=== PATIENT | female | born 1940 | race Caucasian/White ===

== ENCOUNTER 2016-10-26 09:57 | Outpatient (CLI) | payer MEDICARE, BC ==
[2016-10-26 10:54] LABS: ALT (SGPT) 24 U/L (0-55); AST (SGOT) 19 U/L (5-34); Alkaline Phosphatase 43 U/L (40-150); Anion Gap 16 mmol/L (10-20); BUN (Urea Nitrogen) 13 mg/dL (9.8-20.1); Bilirubin, Total 0.8 mg/dL (0.2-1.2); Calc. Creatinine Clearance 0 mL/min (70-130); Calcium 9.7 mg/dL (7.8-10.44); Carbon Dioxide 29 mmol/L (23-31); Chloride 91 mmol/L (98-107); Estimated GFR-MDRD 71; Globulin 2.9 g/dL (2.4-3.5); LDL Cholesterol, Calculated 110 mg/dL; Protein, Total 7.3 g/dL (5.8-8.1)
[2016-10-26 11:48] LABS: Hemoglobin A1c 5.9 % (4.0-6.0)
[2016-10-26 12:29] LABS: Hematocrit 44.1 % (36.0-47.0); Mean Platelet Volume 5.4 fL (7.4-10.4); Neutrophil 56 % (42-75); Red Blood Cell (RBC) Count 4.59 mill/uL (4.20-5.40); White Blood Cell (WBC) Count 3.3 thou/uL (4.8-10.8)
== END 2016-10-26 09:58 | disposition home or self-care (01) ==
LOC: HPCALD 09:57
PROVIDERS: ATTEND Family Medicine
DX: E78.5 Hyperlipidemia, unspecified (principal); E11.9 Type 2 diabetes mellitus without complications; I10 Essential (primary) hypertension; E55.9 Vitamin D deficiency, unspecified
CPT/HCPCS: 36415; 80053; 80061; 82306; 83036; 85025

== ENCOUNTER 2016-11-23 09:31 | Emergency (ER) | payer MEDICARE, BC ==
[2016-11-23] MEDS ORDERED: Fentanyl 100 MCG/2 ML VIAL ONE (11:21)
--- NOTE | 2016-11-23 20:53 | RAD ---
LEFT WRIST THREE VIEWS 11/23/16 No acute fracture was demonstrated. Old trauma to the base of the first metacarpal is noted. There a re severe arthritic changes between the trapezium and first metacarpal as well as deformity of the m etacarpal base, probably due to prior trauma. The trapezium seems somewhat sclerotic and deformed. T he other carpals appear intact. There is suggestion of calcification of the triangular fibrocartilag e which can sometimes be seen in deposition diseases. There is some soft tissue swelling around the wrist, particularly dorsally, but I cannot define any definite fracture at this time. Since osteopen ic patient's such as this, sometimes can have subtle injuries that do not show up initially, if she does not improve as expected, repeat films, possibly with scaphoid views, in 7 to 10 days could be i ndicated. IMPRESSION: Longstanding arthritic findings as noted without any clear acute fracture. POS: HOME
== END 2016-11-23 12:05 | disposition home or self-care (01) ==
LOC: BURERS 09:31
DX: S62.102A Fracture of unspecified carpal bone, left wrist, initial encounter for closed fracture (principal); E11.9 Type 2 diabetes mellitus without complications; E78.5 Hyperlipidemia, unspecified; I10 Essential (primary) hypertension; W18.30XA Fall on same level, unspecified, initial encounter
CPT/HCPCS: 29125; 96374; J3010

== ENCOUNTER 2016-12-08 17:17 | Emergency (ER) | payer MEDICARE, BC ==
[2016-12-08 18:10] LABS: #Lymphocytes 0.7 thou/uL (1.20-3.40); #Monocytes 0.6 thou/uL (0.11-0.59); #Neutrophils 3.6 thou/uL (1.40-6.50); %Basophils 0.9 % (0.0-1.0); %Eosinophils 0.7 % (0.0-10.0); %Monocytes 11.4 % (0.0-10.0); Hematocrit 37.6 % (36.0-47.0); Red Blood Cell (RBC) Count 4.03 mill/uL (4.20-5.40); White Blood Cell (WBC) Count 4.9 thou/uL (4.8-10.8)
[2016-12-08 18:11] LABS: Bilirubin Negative (Negative); Blood, Urine Small (Negative); Glucose, Urine (Dipstick) Negative (Negative); Ketone, Urine Negative (Negative); Nitrite Negative (Negative); Urobilinogen 0.2 mg/dL (0.2-1.0)
[2016-12-08 18:12] LABS: Lactic Acid - Sepsis 1.4 mmol/L (0.5-2.2)
[2016-12-08 18:12] LABS: Protein, Urine (Dipstick) Negative (Neg-Trace)
[2016-12-08 18:17] LABS: ALT (SGPT) 33 U/L (0-55); AST (SGOT) 22 U/L (5-34); Alkaline Phosphatase 48 U/L (40-150); Anion Gap 15 mmol/L (10-20); BUN (Urea Nitrogen) 12 mg/dL (9.8-20.1); Bilirubin, Total 0.7 mg/dL (0.2-1.2); Calc. Creatinine Clearance 0 mL/min (70-130); Calcium 9.5 mg/dL (7.8-10.44); Carbon Dioxide 26 mmol/L (23-31); Chloride 87 mmol/L (98-107); Estimated GFR-MDRD 73; Globulin 3.1 g/dL (2.4-3.5); Protein, Total 7.6 g/dL (5.8-8.1)
[2016-12-08 18:18] LABS: Troponin I 0.013 ng/mL (< 0.028)
[2016-12-08 18:19] LABS: Bacteria/HPF None Seen HPF (None Seen); Hyaline Casts/LPF NONE SEEN LPF (0-3 Hyaline); Oval Fat Bodies/HPF None Seen HPF (None Seen); RBC/HPF 0-3 HPF (0-3); Renal Epithelial None Seen HPF (0-3); Sperm/HPF None Seen HPF (None Seen); Squamous Epithelial None Seen HPF (0-3); Transitional Epithelial NONE SEEN HPF (0-3); Trichomonas/HPF None Seen HPF (None Seen); WBC/HPF None Seen HPF (0-3); Yeast-All Forms None Seen HPF (None Seen)
[2016-12-08] MEDS ORDERED: Enoxaparin Sodium 100 MG/ML SYRINGE ONE (18:34)
[2016-12-08 18:38] LABS: PTT 28.2 SEC (22.9-36.1)
[2016-12-08 18:39] LABS: Prothrombin Time 14.3 SEC (12.0-14.7)
[2016-12-08] MEDS ORDERED: Potassium Chloride 20 MEQ TAB ONE (18:56)
--- NOTE | 2016-12-08 22:44 | RAD ---
PORTABLE CHEST 12/08/16 An AP portable film at 1812 is compared with a 07/04/15 study done at [facility]. Cardiomegaly is present without clear congestive change. There are no effusions. The right lung is c lear. There is a little increased density in the left upper lobe. I cannot exclude an infiltrate her e. The trachea is midline. IMPRESSION: 1. Cardiomegaly. 2. Probable left upper lobe infiltrate. POS: HOME
--- NOTE | 2016-12-08 22:50 | CT ---
CT ANGIO OF THE CHEST 12/08/16 CT angio of the chest was done after a bolus of IV contrast. Axial slices were acquired, then south l and sagittal reconstructions were done afterwards. There is excellent opacification of the pulmonary arteries with no filling defects to suggest emboli . There is no signs of aortic dissection or aneurysm. The heart is enlarged but contains no pericard ial fluid. There is probably some calcifications in the left coronary circulation. No mediastinal ma ss or adenopathy of significance was seen. The major finding on the study is a patchy left upper lobe opacity with air bronchograms presumed to be a consolidation of pneumonia. The lungs were otherwise clear. There are no effusions. Scarring i s present in the lung apices in particular. Scans into the upper abdomen show the liver in part. It is somewhat low in density suggesting diffus e fatty infiltration. A small hiatal hernia is present. IMPRESSION: Left upper lobe parenchymal opacity with air bronchograms, most consistent with pneumonia. REPORT IN AGREEMENT WITH PRELIMINARY READING BY VRTRESSA. POS: HOME
--- NOTE | 2016-12-08 22:52 | CT ---
CT OF THE BRAIN WITHOUT CONTRAST 12/08/[address] was done. The ventricles are normal in size for age and atrophy. There is no ventri cular shift. No intracranial bleeding, mass or sign of acute stroke was found. Some minimal patchy h ypolucency in the deep white matter suggests chronic ischemic change. The calvarium appears intact. The sphenoid sinus and mastoid air cells are clear. IMPRESSION: No acute intracranial finding. POS: HOME
== END 2016-12-08 20:07 | disposition short-term general hospital (02) ==
LOC: BURERS 17:17
DX: I48.91 Unspecified atrial fibrillation (principal); E87.1 Hypo-osmolality and hyponatremia; R91.8 Other nonspecific abnormal finding of lung field; E11.9 Type 2 diabetes mellitus without complications; E78.5 Hyperlipidemia, unspecified; I10 Essential (primary) hypertension; Z79.899 Other long term (current) drug therapy
CPT/HCPCS: 36416; 51701; 70450; 71010; 71275; 80053; 81003; 81015; 82553; 83605; 83880; 84443; 84484; 85025; 85379; 85610; 85730; 93005; 94760; 96360; 96372; A4353; J1650

== ENCOUNTER 2016-12-28 09:09 | Outpatient (CLI) | payer MEDICARE, BC ==
[2016-12-28 11:13] LABS: #Basophils 0.1 thou/uL (0.0-0.2); #Eosinphils 0.2 thou/uL (0.0-0.7); #Lymphocytes 0.4 thou/uL (1.20-3.40); #Neutrophils 9.4 thou/uL (1.40-6.50); %Basophils 0.7 % (0.0-1.0); %Eosinophils 1.6 % (0.0-10.0); %Lymphocytes 3.4 % (21.0-51.0); %Monocytes 8.7 % (0.0-10.0); %Neutrophils 85.7 % (42.0-75.0); Hemoglobin 13.4 g/dL (12.0-16.0); Mean Corpuscular HGB CONC 35.4 g/dL (32.0-36.0); Mean Corpuscular Hemoglobin 33.2 pg (27.0-31.0); Mean Corpuscular Volume 93.7 fl (81.0-99.0); Mean Platelet Volume 6.2 fL (7.4-10.4); Platelet Count 220 thou/uL (130-400); Red Blood Cell (RBC) Count 4.03 mill/uL (4.20-5.40); White Blood Cell (WBC) Count 10.9 thou/uL (4.8-10.8)
[2016-12-28 11:15] LABS: Anion Gap 17 mmol/L (10-20); BUN (Urea Nitrogen) 13 mg/dL (9.8-20.1); Calc. Creatinine Clearance 0 mL/min (70-130); Calcium 10.6 mg/dL (7.8-10.44); Carbon Dioxide 27 mmol/L (23-31); Chloride 89 mmol/L (98-107); Estimated GFR-MDRD 78; Glucose 105 mg/dL (83-110); Potassium 3.2 mmol/L (3.5-5.1); Sodium 130 mmol/L (136-145)
== END 2016-12-28 09:10 | disposition home or self-care (01) ==
LOC: BURLAB 09:09
PROVIDERS: ATTEND Internal Medicine Cardiovascular Disease
DX: I48.1 Persistent atrial fibrillation (principal); I10 Essential (primary) hypertension
CPT/HCPCS: 36415; 80048; 84443; 85025

== ENCOUNTER 2016-12-31 14:16 | Outpatient (CLI) | payer MEDICARE, BC ==
--- NOTE | 2016-12-31 21:29 | RAD ---
RIGHT HAND THREE VIEWS: Date: 12-31-16 FINDINGS: A slightly displaced fracture at the base of the proximal phalanx of the fifth digit is present. The re is significant posterior angulation of the distal fragment. 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 No a cute carpal abnormality was appreciated, though all carpals were not seen optimally. IMPRESSION: Mildly displaced angulated fracture at the base of the proximal phalanx of the little finger. POS: HOME
== END 2016-12-31 14:17 | disposition home or self-care (01) ==
LOC: BURRAD 14:16
PROVIDERS: ATTEND Family Medicine
DX: M79.641 Pain in right hand (principal); S62.616A Displaced fracture of proximal phalanx of right little finger, initial encounter for closed fracture

== ENCOUNTER 2017-01-16 08:34 | Outpatient (CLI) | payer MEDICARE, BC ==
[2017-01-16 10:52] LABS: Eosinophils 5 % (0-10); Hemoglobin 12.2 g/dL (12.0-16.0); Lymphocytes 12 % (21-51); MDiff Complete? YES; Mean Corpuscular HGB CONC 33.3 g/dL (32.0-36.0); Mean Corpuscular Hemoglobin 31.8 pg (27.0-31.0); Mean Corpuscular Volume 95.4 fl (81.0-99.0); Mean Platelet Volume 5.8 fL (7.4-10.4); Monocytes 8 % (0-10); Neutrophil 75 % (42-75); Platelet Count 290 thou/uL (130-400); Red Blood Cell (RBC) Count 3.82 mill/uL (4.20-5.40); White Blood Cell (WBC) Count 2.9 thou/uL (4.8-10.8)
== END 2017-01-16 08:35 | disposition home or self-care (01) ==
LOC: BURLAB 08:34
PROVIDERS: ATTEND Internal Medicine Cardiovascular Disease
DX: I48.1 Persistent atrial fibrillation (principal); E78.5 Hyperlipidemia, unspecified
CPT/HCPCS: 36415; 85025

== ENCOUNTER 2017-03-01 12:40 | Emergency (ER) | payer MEDICARE, BC ==
[2017-03-01] MEDS ORDERED: Oxymetazoline HCl 0.05% ( 15 ML ) ONE (13:32)
== END 2017-03-01 14:29 | disposition home or self-care (01) ==
LOC: BURERS 12:40
DX: R04.0 Epistaxis (principal); E11.9 Type 2 diabetes mellitus without complications; E78.5 Hyperlipidemia, unspecified; I10 Essential (primary) hypertension; Z79.84 Long term (current) use of oral hypoglycemic drugs; Z79.899 Other long term (current) drug therapy
CPT/HCPCS: 99283

== ENCOUNTER 2017-03-06 10:24 | Outpatient (CLI) | payer MEDICARE, BC ==
[2017-03-06 12:06] LABS: Hemoglobin 13.2 g/dL (12.0-16.0); Mean Corpuscular HGB CONC 34.5 g/dL (32.0-36.0); Mean Corpuscular Hemoglobin 32.2 pg (27.0-31.0); Mean Corpuscular Volume 93.3 fl (81.0-99.0); Mean Platelet Volume 5.9 fL (7.4-10.4); Platelet Count 205 thou/uL (130-400); RBC Distribution Width 12.4 % (11.5-14.5); White Blood Cell (WBC) Count 3.8 thou/uL (4.8-10.8)
[2017-03-06 14:59] LABS: ALT (SGPT) 51 U/L (8-55); AST (SGOT) 31 U/L (5-34); Albumin 4.2 g/dL (3.4-4.8); Alkaline Phosphatase 45 U/L (40-150); Anion Gap 16 mmol/L (10-20); BUN (Urea Nitrogen) 13 mg/dL (9.8-20.1); Bilirubin, Total 1.1 mg/dL (0.2-1.2); Calc. Creatinine Clearance 0 mL/min (70-130); Calcium 9.4 mg/dL (7.8-10.44); Carbon Dioxide 26 mmol/L (23-31); Chloride 90 mmol/L (98-107); Estimated GFR-MDRD 75; Globulin 2.4 g/dL (2.4-3.5); Glucose 107 mg/dL (83-110); Potassium 3.3 mmol/L (3.5-5.1); Protein, Total 6.6 g/dL (6.0-8.3); Sodium 129 mmol/L (136-145)
[2017-03-06 15:15] LABS: Hemoglobin A1c 5.9 % (4.0-6.0)
[2017-03-06 15:40] LABS: Eosinophils 1 % (0-10); Lymphocytes 19 % (21-51); MDiff Complete? YES; Monocytes 19 % (0-10); Neutrophil 61 % (42-75); PLT Morphology Comment Appears Adequate
== END 2017-03-06 10:25 | disposition home or self-care (01) ==
LOC: HPCALD 10:24
PROVIDERS: ATTEND Family Medicine
DX: E11.9 Type 2 diabetes mellitus without complications (principal); I10 Essential (primary) hypertension
CPT/HCPCS: 36415; 80053; 83036; 85025

== ENCOUNTER 2017-04-17 11:23 | Outpatient (CLI) | payer MEDICARE, BC | END 2017-04-17 11:24 | disposition home or self-care (01) | LOC: HPCALD 11:23 | PROVIDERS: ATTEND Family Medicine | DX: N39.0 Urinary tract infection, site not specified (principal) | CPT/HCPCS: 87077; 87086; 87186 ==

== ENCOUNTER 2017-05-01 21:28 | Inpatient (IN) | payer MEDICARE, BC ==
[2017-05-01 22:14] LABS: Hemoglobin 14.4 g/dL (12.0-16.0); Mean Corpuscular HGB CONC 38.3 g/dL (32.0-36.0); Mean Corpuscular Hemoglobin 34.1 pg (27.0-31.0); Mean Platelet Volume 5.4 fL (7.4-10.4); Platelet Count 251 thou/uL (130-400); RBC Distribution Width 10.7 % (11.5-14.5); Red Blood Cell (RBC) Count 4.24 mill/uL (4.20-5.40); White Blood Cell (WBC) Count 5.9 thou/uL (4.8-10.8)
[2017-05-01 22:19] LABS: ALT (SGPT) 41 U/L (8-55); AST (SGOT) 27 U/L (5-34); Albumin 4.5 g/dL (3.4-4.8); Alkaline Phosphatase 49 U/L (40-150); Anion Gap 16 mmol/L (10-20); BUN (Urea Nitrogen) 17 mg/dL (9.8-20.1); Bilirubin, Total 1.2 mg/dL (0.2-1.2); Calc. Creatinine Clearance 0 mL/min (70-130); Calcium 9.5 mg/dL (7.8-10.44); Carbon Dioxide 26 mmol/L (23-31); Chloride 79 mmol/L (98-107); Estimated GFR-MDRD 71; Glucose 152 mg/dL (83-110); Potassium 3.3 mmol/L (3.5-5.1); Protein, Total 7.5 g/dL (6.0-8.3)
[2017-05-01 22:20] LABS: CKMB 3.1 ng/mL (0-6.6); Sodium 118 mmol/L (136-145); Troponin I Less than 0.010 ng/mL (< 0.028)
[2017-05-01 22:22] LABS: Bilirubin Negative (Negative); Blood, Urine Negative (Negative); Clarity Clear (Clear); Glucose, Urine (Dipstick) Negative (Negative); Leukocyte Moderate (Negative); Nitrite Negative (Negative); Protein, Urine (Dipstick) Trace mg/dL (Neg-Trace); Urobilinogen 0.2 mg/dL (0.2-1.0); pH, Urine 6.5 (5.0-9.0)
[2017-05-01 22:29] LABS: #Basophils 0.1 thou/uL (0.0-0.2); #Lymphocytes 0.7 thou/uL (1.20-3.40); #Monocytes 0.9 thou/uL (0.11-0.59); #Neutrophils 4.4 thou/uL (1.40-6.50); %Eosinophils 0.3 % (0.0-10.0); %Lymphocytes 10.1 % (21.0-51.0); %Monocytes 14.5 % (0.0-10.0); %Neutrophils 74.2 % (42.0-75.0); MDiff Complete? YES; Macrocytosis SLIGHT = 6-15 cells (100X) (0-5/hpf); PLT Morphology Comment Appears Adequate
[2017-05-01 22:32] LABS: Bacteria/HPF Rare-Few HPF (None Seen); Squamous Epithelial 0-3 HPF (0-3)
[2017-05-01] MEDS ORDERED: Potassium Chloride 20 MEQ TAB ONE ×2 (22:48→22:51)
[2017-05-01 23:50] VITALS: BMI 22.1
[2017-05-02] MEDS ORDERED: Sodium Chloride 0.9% 1,000 ML IV SCH ×2 (00:15→07:30)
[2017-05-02 06:21] LABS: Anion Gap 12 mmol/L (10-20); BUN (Urea Nitrogen) 10 mg/dL (9.8-20.1); Calc. Creatinine Clearance 65 mL/min (70-130); Calcium 8.8 mg/dL (7.8-10.44); Carbon Dioxide 25 mmol/L (23-31); Chloride 89 mmol/L (98-107); Estimated GFR-MDRD 87; Glucose 113 mg/dL (83-110); Potassium 3.4 mmol/L (3.5-5.1); Sodium 123 mmol/L (136-145)
[2017-05-02] MEDS ORDERED: Potassium Chloride 20 MEQ TAB PO SCH (08:00)
[2017-05-02] MEDS: Pioglitazone HCl 15 MG TAB PO SCH (09:45)
[2017-05-02] MEDS: Losartan Potassium 50 MG TAB PO SCH (09:59)
[2017-05-02] MEDS: Calcium Carbonate 500 MG TAB PO SCH (10:00)
[2017-05-02] MEDS: Multivit, Therapeutic 1 TAB PO SCH ×2 (10:02→10:03)
[2017-05-02] MEDS: Potassium Chloride 20 MEQ TAB PO SCH ×2 (10:02→20:53)
[2017-05-02] MEDS: Dronedarone HCl 400 MG TAB PO SCH ×2 (10:02→18:24)
[2017-05-02] MEDS: Loratadine 10 MG TAB PO SCH (10:03)
[2017-05-02] MEDS: Olopatadine HCl 100 DROP/5 ML BOT EA EYE SCH ×2 (10:04→20:54)
[2017-05-02] MEDS: Apixaban 5 MG TAB PO SCH ×2 (10:04→20:54)
[2017-05-02] MEDS: Anastrozole [Arimidex] 1 MG PO SCH (14:55)
[2017-05-02] MEDS: Temazepam 15 MG CAP PO SCH (20:52)
[2017-05-02] MEDS: Ezetimibe 10 MG TAB PO SCH (20:54)
[2017-05-03 06:56] LABS: Hemoglobin 13.6 g/dL (12.0-16.0); Platelet Count 210 thou/uL (130-400)
[2017-05-03 07:27] LABS: Anion Gap 15 mmol/L (10-20); BUN (Urea Nitrogen) 14 mg/dL (9.8-20.1); Calc. Creatinine Clearance 59 mL/min (70-130); Calcium 9.3 mg/dL (7.8-10.44); Carbon Dioxide 24 mmol/L (23-31); Chloride 94 mmol/L (98-107); Estimated GFR-MDRD 78; Glucose 103 mg/dL (83-110); Potassium 4.1 mmol/L (3.5-5.1); Sodium 129 mmol/L (136-145)
[2017-05-03] MEDS: Olopatadine HCl 100 DROP/5 ML BOT EA EYE SCH ×2 (08:38→21:02)
[2017-05-03] MEDS: Anastrozole [Arimidex] 1 MG PO SCH (08:39)
[2017-05-03] MEDS: Calcium Carbonate 500 MG TAB PO SCH (08:40)
[2017-05-03] MEDS: Apixaban 5 MG TAB PO SCH ×2 (08:41→21:01)
[2017-05-03] MEDS: Potassium Chloride 20 MEQ TAB PO SCH (08:43)
[2017-05-03] MEDS: Pioglitazone HCl 15 MG TAB PO SCH (08:43)
[2017-05-03] MEDS: Dronedarone HCl 400 MG TAB PO SCH ×2 (08:43→16:39)
[2017-05-03] MEDS: Loratadine 10 MG TAB PO SCH (08:43)
[2017-05-03] MEDS: Losartan Potassium 50 MG TAB PO SCH (08:43)
[2017-05-03] MEDS: Ezetimibe 10 MG TAB PO SCH (21:01)
[2017-05-03] MEDS: Temazepam 15 MG CAP PO SCH (23:04)
[2017-05-04 06:21] VITALS: BP 166/74; TEMP 98.6
[2017-05-04 07:00] LABS: Anion Gap 15 mmol/L (10-20); BUN (Urea Nitrogen) 16 mg/dL (9.8-20.1); Calc. Creatinine Clearance 59 mL/min (70-130); Calcium 9.4 mg/dL (7.8-10.44); Carbon Dioxide 25 mmol/L (23-31); Chloride 93 mmol/L (98-107); Estimated GFR-MDRD 78; Glucose 97 mg/dL (83-110); Potassium 4.3 mmol/L (3.5-5.1); Sodium 129 mmol/L (136-145)
[2017-05-04] MEDS ORDERED: Potassium Chloride 20 MEQ TAB PO SCH (08:00)
[2017-05-04] MEDS: Pioglitazone HCl 15 MG TAB PO SCH (08:17)
[2017-05-04] MEDS: Apixaban 5 MG TAB PO SCH (08:18)
[2017-05-04] MEDS: Losartan Potassium 50 MG TAB PO SCH (08:18)
[2017-05-04] MEDS: Multivit, Therapeutic 1 TAB PO SCH (08:18)
[2017-05-04] MEDS: Calcium Carbonate 500 MG TAB PO SCH (08:18)
[2017-05-04] MEDS: Dronedarone HCl 400 MG TAB PO SCH (08:20)
[2017-05-04] MEDS: Loratadine 10 MG TAB PO SCH (08:22)
[2017-05-04] MEDS: Olopatadine HCl 100 DROP/5 ML BOT EA EYE SCH (08:23)
[2017-05-04] MEDS: Anastrozole [Arimidex] 1 MG PO SCH (08:23)
--- NOTE | 2017-05-04 20:22 | DIS ---
written discharge summary done due to dictation system cutting off during phone call [facility]
== END 2017-05-04 11:22 | disposition home or self-care (01) | DRG 641 ==
LOC: BURERS 21:28 → BURMED 22:40
PROVIDERS: ADMIT Family Medicine; ATTEND Family Medicine
DX: E87.1 Hypo-osmolality and hyponatremia (principal); I48.91 Unspecified atrial fibrillation; E11.9 Type 2 diabetes mellitus without complications; Z85.3 Personal history of malignant neoplasm of breast; E78.5 Hyperlipidemia, unspecified; I10 Essential (primary) hypertension; E55.9 Vitamin D deficiency, unspecified; E87.6 Hypokalemia; J30.9 Allergic rhinitis, unspecified
CPT/HCPCS: 36415; 36416; 80048; 80053; 81003; 81015; 82553; 84484; 85014; 85018; 85025; 85049; 93005; A4216; G8978-GP-CJ; G8979-GP-CI

== ENCOUNTER 2017-05-20 10:50 | Outpatient (CLI) | payer MEDICARE, BC | END 2017-05-20 10:51 | disposition home or self-care (01) | LOC: HPCALD 10:50 | PROVIDERS: ATTEND Family Medicine | DX: N39.0 Urinary tract infection, site not specified (principal) | CPT/HCPCS: 87077; 87086; 87186 ==

== ENCOUNTER 2017-06-27 10:09 | Outpatient (CLI) | payer MEDICARE, BC ==
[2017-06-27 11:07] LABS: Anion Gap 13 mmol/L (10-20); BUN (Urea Nitrogen) 15 mg/dL (9.8-20.1); Calc. Creatinine Clearance 0 mL/min (70-130); Calcium 9.4 mg/dL (7.8-10.44); Carbon Dioxide 26 mmol/L (23-31); Chloride 89 mmol/L (98-107); Estimated GFR-MDRD 74; Glucose 100 mg/dL (83-110); Potassium 4.5 mmol/L (3.5-5.1); Sodium 123 mmol/L (136-145)
== END 2017-06-27 10:10 | disposition home or self-care (01) ==
LOC: BURLAB 10:09
PROVIDERS: ATTEND Internal Medicine Cardiovascular Disease
DX: I10 Essential (primary) hypertension (principal)
CPT/HCPCS: 36415; 80048

== ENCOUNTER 2017-09-19 15:46 | Emergency (ER) | payer MEDICARE, BC ==
--- NOTE | 2017-09-19 16:47 | CT ---
CT OF BRAIN PERFORMED WITHOUT CONTRAST ENHANCEMENT: 09/19/17 HISTORY: Fall with hitting back of the head. COMPARISON: 12/08/16 study. There is generalized ventricular and sulcal prominence. There are no signs of intracerebral hemorrhag e or extra-axial fluid collections. No mass lesion or mass effect. A right posterior scalp hematoma i s noted. IMPRESSION: No acute intracranial abnormalities. POS: [facility]
--- NOTE | 2017-09-19 16:51 | CT ---
CT CERVICAL SPINE WITH CORONAL AND SAGITTAL REFORMATIONS: 09/19/17 HISTORY: Injury. Fell backwards and hit back of head on stone, neck pain. FINDINGS: Degenerative changes are present. No acute fracture or subluxation is identified. POS: [facility]
[2017-09-19] MEDS ORDERED: Adacel (T-DAP) 0.5 ML VIAL ONE (17:08)
== END 2017-09-19 17:16 | disposition home or self-care (01) ==
LOC: BURERS 15:46
DX: S00.03XA Contusion of scalp, initial encounter (principal); W18.30XA Fall on same level, unspecified, initial encounter
CPT/HCPCS: 70450; 72125; 90471; 90715

== ENCOUNTER 2017-12-11 15:36 | Emergency (ER) | payer MEDICARE, BC ==
--- NOTE | 2017-12-11 17:40 | RAD ---
LEFT WRIST THREE VIEWS: 12/11/17 Comparison is made with a prior study dated 11/23/16. There is a new fracture of the radial styloid process that was not present before. Additionally, ther e is a fracture of the ulnar styloid which is somewhat subtle. The carpal relationships are about the same as before. No acute carpal fractures were seen. Deformity of the proximal first metacarpal is c onsistent with old injury here with resulting severe degenerative changes between it and the trapeziu m. This has not changed in appearance over time. IMPRESSION: 1. Acute fractures of the radial and ulnar styloid processes. 2. Old traumatic changes around the first carpometacarpal joint. POS: HOME
== END 2017-12-11 16:55 | disposition home or self-care (01) ==
LOC: BURERS 15:36
DX: S52.515A Nondisplaced fracture of left radial styloid process, initial encounter for closed fracture (principal); I48.91 Unspecified atrial fibrillation; I49.9 Cardiac arrhythmia, unspecified; E11.9 Type 2 diabetes mellitus without complications; E78.5 Hyperlipidemia, unspecified; I10 Essential (primary) hypertension; W01.0XXA Fall on same level from slipping, tripping and stumbling without subsequent striking against object, initial encounter
CPT/HCPCS: 29125

== ENCOUNTER 2018-01-23 11:35 | Outpatient (CLI) | payer MEDICARE, BC ==
--- NOTE | 2018-01-23 16:01 | RAD ---
LEFT FOOT THREE VIEWS: Date: 01-23-18 Comparison: 01-22-12 I did not see any more recent studies. FINDINGS: There is a subacute fracture at the base of the fifth metatarsal, age indeterminate. It was not prese nt in 2011. There is prominence of the cortex and periosteum in the 2nd, 3rd, and 4th metatarsal shaf ts, but this was present before. It is a little more prominent now, but truly not a new finding. Over all, the bones of the foot are more osteopenic than they were previously. A tiny calcaneal spur is se en. IMPRESSION: Subacute fracture at the base of the fifth metatarsal. Age indeterminate. POS: HOME
== END 2018-01-23 11:36 | disposition home or self-care (01) ==
LOC: BURRAD 11:35
PROVIDERS: ATTEND Family Medicine
DX: M79.672 Pain in left foot (principal); S92.352A Displaced fracture of fifth metatarsal bone, left foot, initial encounter for closed fracture

== ENCOUNTER 2019-03-12 22:36 | Inpatient (IN) | payer MEDICARE, BC ==
[2019-03-12 23:19] LABS: Clarity Clear (Clear)
[2019-03-12 23:20] LABS: Bilirubin Negative (Negative); Blood, Urine Small (Negative); Glucose, Urine (Dipstick) Negative (Negative); Leukocyte Trace (Negative); Nitrite Negative (Negative); Protein, Urine (Dipstick) Negative (Neg-Trace); Urobilinogen 0.2 mg/dL (0.2-1.0)
[2019-03-12 23:29] LABS: Bacteria/HPF Rare-Few HPF (None Seen); Squamous Epithelial 0-3 HPF (0-3)
[2019-03-12 23:30] LABS: ALT (SGPT) 17 U/L (8-55); AST (SGOT) 19 U/L (5-34); Albumin 4.3 g/dL (3.4-4.8); Alkaline Phosphatase 60 U/L (40-150); Anion Gap 14 mmol/L (10-20); BUN (Urea Nitrogen) 20 mg/dL (9.8-20.1); Bilirubin, Total 0.7 mg/dL (0.2-1.2); Calc. Creatinine Clearance 0 mL/min (70-130); Calcium 9.8 mg/dL (7.8-10.44); Carbon Dioxide 24 mmol/L (23-31); Chloride 87 mmol/L (98-107); Estimated GFR-MDRD 63; Globulin 3.1 g/dL (2.4-3.5); Glucose 100 mg/dL (83-110); Magnesium 2.1 mg/dL (1.6-2.6); Potassium 4.4 mmol/L (3.5-5.1); Protein, Total 7.4 g/dL (6.0-8.3); Sodium 121 mmol/L (136-145)
[2019-03-12 23:38] LABS: Band 1 % (5-11); Lymphocytes 24 % (21-51); MDiff Complete? YES; Mean Corpuscular HGB CONC 34.7 g/dL (32.0-36.0); Mean Corpuscular Hemoglobin 32.4 pg (27.0-31.0); Mean Corpuscular Volume 93.5 fL (78.0-98.0); Mean Platelet Volume 5.1 fL (7.4-10.4); Monocytes 14 % (0-10); Neutrophil 61 % (42-75); Platelet Count 287 thou/uL (130-400); Platelet Morphology Comment Appears Adequate; RBC Distribution Width 10.6 % (11.5-14.5); RBC Morphology Normal; Small Platelets SLIGHT; White Blood Cell (WBC) Count 4.3 thou/uL (4.8-10.8)
[2019-03-13] MEDS ORDERED: Sodium Chloride 0.9% 1,000 ML IV SCH (00:15)
[2019-03-13] MEDS ORDERED: Sodium Chloride 0.9% 500 ML IV SCH (04:15)
[2019-03-13 05:38] LABS: ALT (SGPT) 14 U/L (8-55); AST (SGOT) 16 U/L (5-34); Albumin 3.8 g/dL (3.4-4.8); Alkaline Phosphatase 50 U/L (40-150); Anion Gap 12 mmol/L (10-20); BUN (Urea Nitrogen) 15 mg/dL (9.8-20.1); Bilirubin, Total 0.5 mg/dL (0.2-1.2); Calc. Creatinine Clearance 61 mL/min (70-130); Carbon Dioxide 21 mmol/L (23-31); Chloride 97 mmol/L (98-107); Estimated GFR-MDRD 77; Globulin 2.6 g/dL (2.4-3.5); Glucose 102 mg/dL (83-110); Potassium 4.3 mmol/L (3.5-5.1); Protein, Total 6.4 g/dL (6.0-8.3); Sodium 126 mmol/L (136-145)
[2019-03-13] MEDS ORDERED: HYDROcodone/Acetaminophen 5/325 mg Tablet PO PRN (07:07)
[2019-03-13] MEDS ORDERED: Alendronate Sodium 70 mg Tablet PO SCH (07:15)
[2019-03-13] MEDS ORDERED: Potassium Chloride 20 MEQ TAB PO SCH (08:00)
[2019-03-13] MEDS: Sodium Chloride 0.9% 1,000 ML IV SCH (08:59)
[2019-03-13] MEDS: hydrALAZINE 25 MG TAB PO SCH ×2 (09:00→15:21)
[2019-03-13] MEDS ORDERED: Amlodipine 10 MG TAB PO SCH (09:00)
[2019-03-13] MEDS ORDERED: Pioglitazone HCl 15 MG TAB PO SCH (09:00)
[2019-03-13] MEDS: Multivit, Therapeutic 1 TAB PO SCH (09:01)
[2019-03-13] MEDS: Atenolol 50 MG TAB PO SCH (09:01)
[2019-03-13] MEDS: Apixaban 5 MG TAB PO SCH (09:04)
[2019-03-13] MEDS: Losartan Potassium 50 MG TAB PO SCH (09:04)
[2019-03-13] MEDS: Anastrozole 1 MG TAB PO SCH (09:04)
[2019-03-13] MEDS: Famotidine 20 MG TAB PO SCH ×2 (09:07→21:41)
[2019-03-13] MEDS: Dronedarone HCl 400 MG TAB PO SCH ×2 (09:09→17:41)
[2019-03-13] MEDS: CALCIUM CARBONATE 1200 MG PO SCH (09:24)
[2019-03-13 10:04] VITALS: BMI 23.6
--- NOTE | 2019-03-13 14:18 | HP ---
CHIEF COMPLAINT: Hyponatremia. HISTORY OF PRESENT ILLNESS: A 79-year-old female presented to the [facility] Emergency Department last night secondary to being notified of hyponatremia with a sodium level of 118; she had been seen in the clinical setting earlier yesterday with vague complaints of intermittent epigastric discomfort, not associated with nausea, vomiting, constipation, diarrhea, melena, hematochezia, fever, chills, or diaphoresis. She reported that this epigastric discomfort occurs strictly with oral intake. Of note, she has had no significant weight changes. It was suspected that the patient may have peptic ulcer disease secondary to her complaints of abdominal pain with oral intake, and mild improvement with taking Tums. She denies frequent NSAID use. Lipase and a complete metabolic panel were ordered, and the patient returned to her home setting. As noted, the patient's sodium level was quite low, prompting her to be advised to be seen in the emergency department. The patient's lipase was notably normal. In the emergency department, the patient's sodium was 121. She was administered a bolus of sodium chloride and admitted for further intravenous fluids overnight. As of this morning, the patient is comfortable. She reports that she predominantly drinks water at home and feels that she does remain well hydrated overall. The patient's medication list is being reconciled. However, she states she does take spironolactone as far as potential medication causes of her hyponatremia. She is fully alert, oriented and aware of her reason for admission. PAST MEDICAL HISTORY: Includes hypertension, type 2 diabetes mellitus, atrial fibrillation, dyslipidemia, chronic back pain. PAST SURGICAL HISTORY: Includes a partial hysterectomy, an L4-L5 spine surgery, left breast lumpectomy. ALLERGIES: ATORVASTATIN, CARVEDILOL, SULFA DRUGS. FAMILY HISTORY: Noncontributory. SOCIAL HISTORY: The patient is a nonsmoker with no EtOH or illicit drug use. She lives alone. CURRENT MEDICATIONS: These are officially being reconciled, but she takes as far as we know, 1. Anastrozole 1 mg daily. 2. Alendronate sodium 70 mg one tablet once a week. 3. Eliquis 2.5 mg daily 4. Losartan 100 mg daily. 5. Amlodipine 5 mg daily. 6. Atenolol 50 mg daily. 7. Vitamin D2 2000 units daily. 8. Turmeric 500 mg daily. 9. Zetia 10 mg daily. 10. Multaq 400 mg half tablet twice a day. 11. Hydrocodone 5-325 mg twice a day as needed. 12. Pioglitazone 15 mg once daily. REVIEW OF SYSTEMS: GENERAL: The patient denies fever, chills, or diaphoresis. EARS, NOSE AND THROAT: Denies sore throat, nasal drainage, or congestion. CARDIOVASCULAR: Denies chest pain or palpitations. RESPIRATORY: Denies shortness of breath or cough. GASTROINTESTINAL: Denies abdominal pain, nausea, vomiting, diarrhea, or constipation. GENITOURINARY: Denies dysuria. MUSCULOSKELETAL: Denies joint pain or swelling. DERMATOLOGIC: Denies rash. NEUROLOGIC: Denies headache. LABORATORY DATA: White blood cells 4.3, hemoglobin 13, hematocrit 37.5, platelets 287. Sodium this morning is 126, potassium 4.3, BUN 15, creatinine 0.73, GFR 77 , glucose 102, AST 16, ALT 14, magnesium is 2.1. PHYSICAL EXAMINATION: VITAL SIGNS: Temperature is 97.9, respiratory rate 16, pulse 73, blood pressure 148/66, oxygen is 98% on room air. GENERAL: The patient is alert and oriented, in no acute distress. HEENT: Face, no asymmetry. Eyes, extraocular muscles are intact bilaterally. Conjunctivae are clear. Head, eyes, ears, nose, and throat are within normal limits. Oral cavity shows moist mucous membranes. NECK: Supple without lymphadenopathy. CARDIOVASCULAR: Regular rate and rhythm. Normal S1 and S2 with a 2/6 murmur. RESPIRATORY: Clear to auscultation bilaterally without wheezes, rales, or rhonchi. GASTROINTESTINAL: Soft, nontender to palpation. EXTREMITIES: No clubbing, cyanosis, or edema. 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 SKIN: No rash. NEUROLOGIC: Nonfocal with cranial nerves 2 through 12 grossly intact. ASSESSMENT AND PLAN: 1. Hyponatremia. The patient's sodium is trending upward appropriately from 121 to 126 overnight. We will continue her normal saline at 75 mL an hour today and repeat her metabolic panel in the morning. We will hold diuretic therapy. I have encouraged the patient to incorporate Gatorade at home instead of drinking solely water going forward. 2. Hypertension. The patient is hemodynamically stable. We will resume her usual blood pressure medications. 3. Type 2 diabetes mellitus. We will resume the patient's pioglitazone. Her glucose is normal this morning. 4. Atrial fibrillation. The patient is rate controlled and in sinus rhythm. She will be continued on Multaq and Eliquis. 5. Dyslipidemia. The patient is on Zetia. 6. Prophylaxis. We will provide famotidine for gastrointestinal prophylaxis and as stated, the patient is on Eliquis for deep venous thrombosis prophylaxis. CODE STATUS: Full. DISPOSITION: The patient will likely be able to return home tomorrow pending normalization of her sodium level. Job ID: [id number] MTDD
[2019-03-13] MEDS ORDERED: TURMERIC 500 MG PO SCH (21:00)
[2019-03-13] MEDS ORDERED: Floranex Packet PO SCH (21:00)
[2019-03-13] MEDS ORDERED: Ezetimibe 10 MG TAB PO SCH (21:00)
[2019-03-14] MEDS: Sodium Chloride 0.9% 1,000 ML IV SCH (00:31)
[2019-03-14 04:05] LABS: Anion Gap 13 mmol/L (10-20); BUN (Urea Nitrogen) 17 mg/dL (9.8-20.1); Calc. Creatinine Clearance 59 mL/min (70-130); Calcium 8.9 mg/dL (7.8-10.44); Carbon Dioxide 19 mmol/L (23-31); Chloride 101 mmol/L (98-107); Estimated GFR-MDRD 75; Glucose 100 mg/dL (83-110); Potassium 4.5 mmol/L (3.5-5.1); Sodium 128 mmol/L (136-145)
[2019-03-14 06:28] VITALS: BP 139/65; TEMP 98
[2019-03-14] MEDS: Losartan Potassium 50 MG TAB PO SCH (08:58)
[2019-03-14] MEDS: Apixaban 5 MG TAB PO SCH (08:59)
[2019-03-14] MEDS ORDERED: Aspirin 81 mg Enteric Coated Tablet PO SCH (09:00)
[2019-03-14] MEDS ORDERED: Amlodipine 5 MG TAB PO SCH (09:00)
[2019-03-14] MEDS: Atenolol 50 MG TAB PO SCH (09:00)
[2019-03-14] MEDS: Multivit, Therapeutic 1 TAB PO SCH (09:00)
[2019-03-14] MEDS ORDERED: Pioglitazone HCl 15 MG TAB PO SCH (09:00)
[2019-03-14] MEDS: Famotidine 20 MG TAB PO SCH (09:01)
[2019-03-14] MEDS: Dronedarone HCl 400 MG TAB PO SCH (09:02)
[2019-03-14] MEDS: Anastrozole 1 MG TAB PO SCH (09:03)
[2019-03-14] MEDS: CALCIUM CARBONATE 1200 MG PO SCH (09:03)
--- NOTE | 2019-03-14 22:30 | DIS ---
DATE OF ADMISSION: 03/13/2019 DATE OF DISCHARGE: 03/14/2019 ADMISSION DIAGNOSIS: Hyponatremia. SECONDARY DIAGNOSES: Hypertension, type 2 diabetes mellitus, atrial fibrillation, and dyslipidemia. PROCEDURES: None. HOSPITAL COURSE: A 79-year-old female presented to the [facility] Emergency Department after being advised by the on-call physician secondary to a critical lab of sodium level 118. She had been seen in the clinical setting with complaints of intermittent epigastric discomfort. Peptic ulcer disease versus pancreatitis was the most likely suspicion, and metabolic panel and lipase level were obtained. The patient's lipase level was normal. However, as noted, her sodium level was quite low at 118. She did present to the emergency department for re-evaluation, where her sodium level was notably 121. She was subsequently provided with sodium chloride and intravenous fluids and admitted to the floor. The patient received normal saline during her stay and her sodium level anaid to a level of 128; satisfactory to be able to discharge back to her home setting. Due to the patient's hyponatremia, she has been advised to withhold taking spironolactone and to incorporate more beverages containing electrolytes rather than her typical intake of strictly water. The patient feels to be back in her usual state of health and is appropriate for discharge home at this time. DISPOSITION: The patient may be discharged back home and follow up with myself in the clinic in 1 week. DISCHARGE MEDICATIONS: Include: 1. Anastrozole 1 mg daily. 2. Alendronate sodium 70 mg one tablet once a week. 3. Eliquis 2.5 mg daily. 4. Losartan 100 mg daily. 5. Amlodipine 5 mg daily. 6. Atenolol 50 mg daily. 7. Vitamin D2 of 2000 international units daily. 8. Turmeric 500 mg daily. 9. Zetia 10 mg daily. 10. Multaq 400 mg half tab twice a day. 11. Hydrocodone 5/325 mg twice a day p.r.n. 12. Pioglitazone 15 mg daily. Job ID: [id number]
== END 2019-03-14 10:30 | disposition home or self-care (01) | DRG 641 ==
LOC: BURERS 22:36 → BURMED 03-13 00:12
PROVIDERS: ADMIT Family Medicine; ATTEND Family Medicine
DX: E87.1 Hypo-osmolality and hyponatremia (principal); I10 Essential (primary) hypertension; E11.9 Type 2 diabetes mellitus without complications; I48.91 Unspecified atrial fibrillation; E78.5 Hyperlipidemia, unspecified; G89.29 Other chronic pain; M54.9 Dorsalgia, unspecified; R10.13 Epigastric pain; Z90.710 Acquired absence of both cervix and uterus; Z90.10 Acquired absence of unspecified breast and nipple; Z88.8 Allergy status to other drugs, medicaments and biological substances; Z88.2 Allergy status to sulfonamides; Z79.899 Other long term (current) drug therapy
CPT/HCPCS: 36415; 36416; 80048; 80053; 81003; 81015; 83735; 84300; 85025; 96360

== ENCOUNTER 2019-03-23 15:13 | Outpatient (CLI) | payer MEDICARE, BC ==
--- NOTE | 2019-03-23 19:51 | RAD ---
RIGHT FOOT 3 VIEWS: Date: 03/23/19 Comparison is made with the 11/13/13 study. An ununited fracture is seen in the proximal fifth metatarsal shaft. This is a new finding since the prior study. Areas of periosteal thickening are seen in the second and third metatarsal shafts, which are judged to be chronic in nature. The remainder of the foot appeared intact. IMPRESSION: Interval development of an ununited fracture of the proximal fifth metatarsal shaft. This does not ap pear acute but has probably been in place for some time. CODE T. POS: HOME
== END 2019-03-23 15:14 | disposition home or self-care (01) ==
LOC: BURRAD 15:13
PROVIDERS: ATTEND Family Medicine
DX: M79.671 Pain in right foot (principal); S92.351K Displaced fracture of fifth metatarsal bone, right foot, subsequent encounter for fracture with nonunion

== ENCOUNTER 2021-05-15 11:16 | Inpatient (IN) | payer MEDICARE, BC ==
[2021-05-15 11:36] LABS: Hemoglobin 14.4 g/dL (12.0-16.0); Mean Corpuscular HGB CONC 35.7 g/dL (32.0-36.0); Mean Corpuscular Hemoglobin 31.2 pg (27.0-31.0); Mean Corpuscular Volume 87.4 fL (78.0-98.0); Platelet Count 329 thou/uL (130-400); RBC Distribution Width 10.9 % (11.5-14.5); Red Blood Cell (RBC) Count 4.59 mill/uL (4.20-5.40); White Blood Cell (WBC) Count 4.5 thou/uL (4.8-10.8)
[2021-05-15 11:37] LABS: #Lymphocytes 0.8 thou/uL (1.20-3.40); #Monocytes 0.5 thou/uL (0.11-0.59); #Neutrophils 3.1 thou/uL (1.40-6.50); %Eosinophils 0.3 % (0.0-10.0); %Monocytes 11.6 % (0.0-10.0); %Neutrophils 69.1 % (42.0-75.0); Mean Platelet Volume 5.9 fL (7.4-10.4)
[2021-05-15 11:55] LABS: ALT (SGPT) 32 U/L (8-55); AST (SGOT) 26 U/L (5-34); Alkaline Phosphatase 51 U/L (40-110); Anion Gap 12 mmol/L (10-20); BUN (Urea Nitrogen) 12 mg/dL (9.8-20.1); Bilirubin, Total 0.9 mg/dL (0.2-1.2); Calc. Creatinine Clearance 0 mL/min (70-130); Calcium 8.9 mg/dL (7.8-10.44); Carbon Dioxide 28 mmol/L (23-31); Chloride 84 mmol/L (98-107); Globulin 3.5 g/dL (2.4-3.5); Glucose 143 mg/dL (83-110); Potassium 3.7 mmol/L (3.5-5.1); Protein, Total 7.5 g/dL (5.8-8.1); Sodium 120 mmol/L (136-145)
[2021-05-15 13:10] LABS: Bilirubin Negative (Negative); Blood, Urine Negative (Negative); Clarity Clear (Clear); Glucose, Urine (Dipstick) Negative (Negative); Ketone, Urine Negative (Negative); Leukocyte Negative (Negative); Nitrite Negative (Negative); Protein, Urine (Dipstick) Negative (Neg-Trace); Urobilinogen 0.2 mg/dL (Less than 2)
[2021-05-15 14:38] VITALS: BMI 22.4
[2021-05-15] MEDS ORDERED: Ondansetron ODT 4 MG TAB SL PRN (15:00)
[2021-05-15] MEDS ORDERED: Ondansetron PF 4 MG/2 ML Vial IVP PRN (15:00)
[2021-05-15] MEDS ORDERED: Acetaminophen 325 MG TAB PO PRN (15:00)
[2021-05-15] MEDS: Dronedarone HCl 400 MG TAB PO SCH (18:16)
[2021-05-15] MEDS: Sodium Chloride 0.9% 1,000 ML IV SCH (19:40)
[2021-05-15] MEDS: Apixaban 2.5 MG TAB PO SCH (20:52)
[2021-05-15] MEDS: Ezetimibe 10 MG TAB PO SCH (20:52)
[2021-05-15] MEDS: Floranex 1 GM Packet PO SCH (20:52)
[2021-05-15] MEDS ORDERED: TURMERIC PO SCH (21:00)
[2021-05-15] MEDS ORDERED: TURMERIC ROOT EXTRACT PO SCH (21:00)
[2021-05-16] MEDS: Sodium Chloride 0.9% 1,000 ML IV SCH ×2 (03:56→14:38)
[2021-05-16 05:39] LABS: ALT (SGPT) 24 U/L (8-55); AST (SGOT) 17 U/L (5-34); Albumin 3.1 g/dL (3.4-4.8); Alkaline Phosphatase 46 U/L (40-110); Anion Gap 12 mmol/L (10-20); BUN (Urea Nitrogen) 10 mg/dL (9.8-20.1); Bilirubin, Total 0.7 mg/dL (0.2-1.2); Calc. Creatinine Clearance 57 mL/min (70-130); Calcium 8.1 mg/dL (7.8-10.44); Carbon Dioxide 27 mmol/L (23-31); Chloride 96 mmol/L (98-107); Globulin 2.6 g/dL (2.4-3.5); Glucose 113 mg/dL (83-110); Potassium 3.6 mmol/L (3.5-5.1); Protein, Total 5.7 g/dL (5.8-8.1); Sodium 131 mmol/L (136-145)
[2021-05-16] MEDS: Amlodipine 5 MG TAB PO SCH (09:39)
[2021-05-16] MEDS: Apixaban 2.5 MG TAB PO SCH ×2 (09:39→21:22)
[2021-05-16] MEDS: Cholecalciferol 1,000 UNITS (25 MCG) TAB PO SCH (09:40)
[2021-05-16] MEDS: Venlafaxine HCl XR 75 MG CAP PO SCH (09:40)
[2021-05-16] MEDS: Losartan Potassium 50 MG TAB PO SCH (09:40)
[2021-05-16] MEDS: Dronedarone HCl 400 MG TAB PO SCH ×2 (09:40→18:22)
[2021-05-16] MEDS: Multivit, Therapeutic 1 TAB PO SCH (09:41)
[2021-05-16] MEDS: Sodium Chloride 1 GM TAB PO SCH (09:41)
[2021-05-16] MEDS: Pioglitazone HCl 15 MG TAB PO SCH (09:43)
[2021-05-16] MEDS: Ezetimibe 10 MG TAB PO SCH (21:22)
[2021-05-16] MEDS: Floranex 1 GM Packet PO SCH (21:22)
[2021-05-17] MEDS: Sodium Chloride 0.9% 1,000 ML IV SCH (05:00)
[2021-05-17 06:03] VITALS: BP 140/65; TEMP 98.7
[2021-05-17 06:04] LABS: Anion Gap 13 mmol/L (10-20); BUN (Urea Nitrogen) 8 mg/dL (9.8-20.1); Calc. Creatinine Clearance 60 mL/min (70-130); Calcium 8.4 mg/dL (7.8-10.44); Carbon Dioxide 28 mmol/L (23-31); Chloride 98 mmol/L (98-107); Glucose 116 mg/dL (83-110); Potassium 3.6 mmol/L (3.5-5.1); Sodium 135 mmol/L (136-145)
[2021-05-17] MEDS: Sodium Chloride 1 GM TAB PO SCH (09:29)
[2021-05-17] MEDS: Multivit, Therapeutic 1 TAB PO SCH (09:29)
[2021-05-17] MEDS: Pioglitazone HCl 15 MG TAB PO SCH (09:29)
[2021-05-17] MEDS: Dronedarone HCl 400 MG TAB PO SCH (09:29)
[2021-05-17] MEDS: Apixaban 2.5 MG TAB PO SCH (09:30)
[2021-05-17] MEDS: Amlodipine 5 MG TAB PO SCH (09:30)
[2021-05-17] MEDS: Losartan Potassium 50 MG TAB PO SCH (09:30)
[2021-05-17] MEDS: Cholecalciferol 1,000 UNITS (25 MCG) TAB PO SCH (09:31)
[2021-05-17] MEDS: Venlafaxine HCl XR 75 MG CAP PO SCH (09:31)
== END 2021-05-17 10:20 | disposition home or self-care (01) | DRG 641 ==
LOC: BURERS 11:16 → BURMED 12:16
PROVIDERS: ADMIT Family Medicine; ATTEND Family Medicine
DX: E87.1 Hypo-osmolality and hyponatremia (principal); R53.1 Weakness; I48.91 Unspecified atrial fibrillation; E11.9 Type 2 diabetes mellitus without complications; E78.5 Hyperlipidemia, unspecified; I10 Essential (primary) hypertension; G89.29 Other chronic pain; M54.9 Dorsalgia, unspecified; F32.9 Major depressive disorder, single episode, unspecified; F41.9 Anxiety disorder, unspecified; Z90.710 Acquired absence of both cervix and uterus; Z79.01 Long term (current) use of anticoagulants; Z85.3 Personal history of malignant neoplasm of breast; Z79.899 Other long term (current) drug therapy
CPT/HCPCS: 36415; 36416; 51701; 80048; 80053; 81003; 83605; 84443; 84484; 85025; 93005; J7050

== ENCOUNTER 2021-06-22 11:25 | Emergency (ER) | payer OTHER, MEDICARE, BC ==
[2021-06-22] MEDS ORDERED: Acetaminophen/Codeine 30-300mg Tablet ONE (11:47)
== END 2021-06-22 13:10 | disposition home or self-care (01) ==
LOC: BURERS 11:25
DX: S20.20XA Contusion of thorax, unspecified, initial encounter (principal); W01.0XXA Fall on same level from slipping, tripping and stumbling without subsequent striking against object, initial encounter; I48.91 Unspecified atrial fibrillation; E78.5 Hyperlipidemia, unspecified; E11.9 Type 2 diabetes mellitus without complications; I10 Essential (primary) hypertension; Z79.01 Long term (current) use of anticoagulants; Z85.3 Personal history of malignant neoplasm of breast
CPT/HCPCS: 71250

== ENCOUNTER 2021-06-24 13:38 | Emergency (ER) | payer MEDICARE, BC | END 2021-06-24 15:03 | disposition home or self-care (01) | LOC: BURERS 13:38 | DX: S42.211A Unspecified displaced fracture of surgical neck of right humerus, initial encounter for closed fracture (principal); I48.91 Unspecified atrial fibrillation; E11.9 Type 2 diabetes mellitus without complications; E78.5 Hyperlipidemia, unspecified; I10 Essential (primary) hypertension; W18.30XA Fall on same level, unspecified, initial encounter; Z85.3 Personal history of malignant neoplasm of breast; Z86.79 Personal history of other diseases of the circulatory system; Z79.01 Long term (current) use of anticoagulants; Z79.899 Other long term (current) drug therapy ==

== ENCOUNTER 2021-06-28 20:38 | Emergency (ER) | payer MEDICARE, BC ==
[2021-06-28] MEDS ORDERED: Magnesium Citrate 300 ML BOT ONE (21:07)
== END 2021-06-28 21:25 | disposition home or self-care (01) ==
LOC: BURERS 20:38
DX: K59.00 Constipation, unspecified (principal); M25.511 Pain in right shoulder; I48.91 Unspecified atrial fibrillation; E11.9 Type 2 diabetes mellitus without complications; E78.5 Hyperlipidemia, unspecified; I10 Essential (primary) hypertension
CPT/HCPCS: 99283

== ENCOUNTER 2022-05-03 09:29 | Emergency (ER) | payer MEDICARE, BC ==
[2022-05-03 10:02] LABS: #Monocytes 0.6 thou/uL (0.11-0.59); #Neutrophils 3.5 thou/uL (1.40-6.50); %Basophils 0.9 % (0.0-1.0); %Eosinophils 0.5 % (0.0-10.0); %Monocytes 12.2 % (0.0-10.0); %Neutrophils 67.4 % (42.0-75.0); Hemoglobin 14.6 g/dL (12.0-16.0); Mean Corpuscular HGB CONC 34.6 g/dL (32.0-36.0); Mean Corpuscular Volume 89.5 fL (78.0-98.0); Mean Platelet Volume 5.8 fL (7.4-10.4); Platelet Count 336 thou/uL (130-400); RBC Distribution Width 11.1 % (11.5-14.5); White Blood Cell (WBC) Count 5.3 thou/uL (4.8-10.8)
[2022-05-03 10:19] LABS: ALT (SGPT) 20 U/L (8-55); AST (SGOT) 17 U/L (5-34); Albumin 4.2 g/dL (3.4-4.8); Alkaline Phosphatase 58 U/L (40-110); Anion Gap 16 mmol/L (10-20); BUN (Urea Nitrogen) 14 mg/dL (9.8-20.1); Bilirubin, Total 0.7 mg/dL (0.2-1.2); Calc. Creatinine Clearance 0 mL/min (70-130); Calcium 9.5 mg/dL (7.8-10.44); Carbon Dioxide 24 mmol/L (23-31); Chloride 95 mmol/L (98-107); Estimated GFR 73; Globulin 3.6 g/dL (2.4-3.5); Glucose 139 mg/dL (83-110); Potassium 3.8 mmol/L (3.5-5.1); Protein, Total 7.8 g/dL (5.8-8.1); Sodium 131 mmol/L (136-145)
[2022-05-03] MEDS ORDERED: Nitroglycerin 0.4 MG TAB 1 EACH ONE (11:25)
== END 2022-05-03 12:21 | disposition home or self-care (01) ==
LOC: BURERS 09:29
DX: I10 Essential (primary) hypertension (principal); E11.9 Type 2 diabetes mellitus without complications; E78.5 Hyperlipidemia, unspecified
CPT/HCPCS: 71045; 80053; 84484; 85025; 93005

== ENCOUNTER 2022-12-04 17:41 | Emergency (ER) | payer MEDICARE, BC ==
[~2022-12-04 17:41] MED LIST: Iopamidol 370 76% 100 ML VIAL ONE
[2022-12-04 18:27] LABS: #Basophils 0.1 thou/uL (0.0-0.2); #Lymphocytes 0.4 thou/uL (1.20-3.40); #Monocytes 0.5 thou/uL (0.11-0.59); #Neutrophils 6.8 thou/uL (1.40-6.50); %Basophils 0.9 % (0.0-1.0); %Eosinophils 0.6 % (0.0-10.0); %Lymphocytes 4.7 % (21.0-51.0); %Monocytes 6.6 % (0.0-10.0); %Neutrophils 87.3 % (42.0-75.0); Hemoglobin 14.7 g/dL (12.0-16.0); Mean Corpuscular HGB CONC 34.9 g/dL (32.0-36.0); Mean Corpuscular Hemoglobin 32.5 pg (27.0-31.0); Mean Corpuscular Volume 93.1 fl (78.0-98.0); Mean Platelet Volume 6.9 fL (7.4-10.4); Platelet Count 238 10x3/uL (130-400); RBC Distribution Width 11.9 % (11.5-14.5); Red Blood Cell (RBC) Count 4.52 mill/uL (4.20-5.40); White Blood Cell (WBC) Count 7.8 10x3/uL (4.8-10.8)
[2022-12-04 18:45] LABS: ALT (SGPT) 26 U/L (8-55); AST (SGOT) 18 U/L (5-34); Albumin 4.3 g/dL (3.4-4.8); Alkaline Phosphatase 76 U/L (40-110); Anion Gap 15 mmol/L (10-20); BUN (Urea Nitrogen) 16 mg/dL (9.8-20.1); Bilirubin, Total 0.6 mg/dL (0.2-1.2); Calc. Creatinine Clearance 0 mL/min (70-130); Calcium 9.3 mg/dL (7.8-10.44); Carbon Dioxide 24 mmol/L (23-31); Chloride 99 mmol/L (98-107); Estimated GFR 66; Globulin 3.6 g/dL (2.4-3.5); Glucose 142 mg/dL (83-110); Potassium 3.8 mmol/L (3.5-5.1); Protein, Total 7.9 g/dL (5.8-8.1); Sodium 134 mmol/L (136-145)
[2022-12-04] MEDS ORDERED: Doxycycline 100 MG CAP ONE (21:24)
[2022-12-04] MEDS ORDERED: predniSONE 20 MG TAB ONE (21:24)
== END 2022-12-04 21:40 | disposition home or self-care (01) ==
LOC: BURERS 17:41
DX: J22 Unspecified acute lower respiratory infection (principal); I48.91 Unspecified atrial fibrillation; E11.9 Type 2 diabetes mellitus without complications; E78.5 Hyperlipidemia, unspecified; I10 Essential (primary) hypertension; Z79.899 Other long term (current) drug therapy; Z79.84 Long term (current) use of oral hypoglycemic drugs; Z79.01 Long term (current) use of anticoagulants; Z20.822 Contact with and (suspected) exposure to COVID-19
CPT/HCPCS: 71045; 71275; 80053; 83880; 84484; 85025; 87804; 93005; J7512; Q9967; U0003; U0005

== ENCOUNTER 2024-06-24 08:12 | Emergency (ER) | payer MEDICARE, BC ==
[2024-06-24] MEDS ORDERED: Oxymetazoline HCl 0.05% (30 ML BOT) ONE (08:44)
[2024-06-24] MEDS ORDERED: Silver Nitrate Application 1 EACH ONE (08:45)
== END 2024-06-24 09:45 | disposition home or self-care (01) ==
LOC: BURERS 08:12
DX: R04.0 Epistaxis (principal); I48.91 Unspecified atrial fibrillation; E11.9 Type 2 diabetes mellitus without complications; I10 Essential (primary) hypertension
CPT/HCPCS: 99283

== ENCOUNTER 2024-09-05 09:14 | Inpatient (IN) | payer MEDICARE, BC ==
[2024-09-07] MEDS ORDERED: Pantoprazole 40 MG DR.TAB PO PRN (17:27)
[2024-09-07] MEDS ORDERED: Polyethylene Glycol 3350 17 GM Packet PO PRN (17:31)
[2024-09-07] MEDS: Ezetimibe 10 MG TAB PO SCH (21:24)
[2024-09-07] MEDS: Apixaban 2.5 MG TAB PO SCH (21:24)
[2024-09-07] MEDS: hydrALAZINE 25 MG TAB PO SCH (21:24)
[2024-09-07] MEDS: Acetaminophen 500 MG TAB PO PRN (21:26)
[2024-09-08 05:06] LABS: #Basophils 0.1 thou/uL (0.0-0.2); #Eosinophils 0.4 thou/uL (0.0-0.7); #Monocytes 0.6 thou/uL (0.11-0.59); #Neutrophils 4.2 thou/uL (1.40-6.50); %Basophils 0.8 % (0.0-1.0); %Eosinophils 5.8 % (0.0-10.0); %Lymphocytes 16.8 % (21.0-51.0); %Monocytes 9.7 % (0.0-10.0); %Neutrophils 66.8 % (42.0-75.0); Hemoglobin 13.5 g/dL (12.0-16.0); Mean Corpuscular HGB CONC 33.6 g/dL (32.0-36.0); Mean Corpuscular Hemoglobin 30.2 pg (27.0-31.0); Mean Platelet Volume 6.1 fL (7.4-10.4); Platelet Count 307 10x3/uL (130-400); RBC Distribution Width 11.1 % (11.5-14.5); Red Blood Cell (RBC) Count 4.45 mill/uL (4.20-5.40); White Blood Cell (WBC) Count 6.2 10x3/uL (4.8-10.8)
[2024-09-08] MEDS ORDERED: Dextrose 5% in Water 1,000 ML IV PRN (05:23)
[2024-09-08] MEDS ORDERED: Dextrose 50% Abboject 50 ML SYRINGE SLOW IVP PRN (05:23)
[2024-09-08] MEDS ORDERED: Glucagon 1 MG/ML KIT IM PRN (05:23)
[2024-09-08 05:45] LABS: ALT (SGPT) 20 U/L (8-55); AST (SGOT) 16 U/L (5-34); Albumin 2.8 g/dL (3.4-4.8); Alkaline Phosphatase 56 U/L (40-110); Anion Gap 13 mmol/L (10-20); BUN (Urea Nitrogen) 21 mg/dL (9.8-20.1); Bilirubin, Total 0.4 mg/dL (0.2-1.2); Calc. Creatinine Clearance 57 mL/min (70-130); Calcium 9.3 mg/dL (7.8-10.44); Carbon Dioxide 25 mmol/L (23-31); Chloride 100 mmol/L (98-107); Estimated GFR 80; Globulin 3.7 g/dL (2.4-3.5); Glucose 141 mg/dL (83-110); Potassium 4.2 mmol/L (3.5-5.1); Protein, Total 6.5 g/dL (5.8-8.1); Sodium 134 mmol/L (136-145)
[2024-09-08] MEDS: Venlafaxine HCl XR 75 MG CAP PO SCH (08:31)
[2024-09-08] MEDS: Floranex 1 GM Packet PO SCH (08:32)
[2024-09-08] MEDS: Losartan 50 MG TAB PO SCH (08:32)
[2024-09-08] MEDS: Multivitamin W/ Minerals 1 TAB PO SCH (08:32)
[2024-09-08] MEDS: Isosorbide Mononitrate 30 MG ER.TAB PO SCH (08:32)
[2024-09-08] MEDS: Metoprolol Succinate XL 25 MG ER.TAB PO SCH (08:32)
[2024-09-08] MEDS: Cholecalciferol 1,000 UNITS (25 MCG) TAB PO SCH (08:32)
[2024-09-08] MEDS: glipiZIDE 5 MG TAB PO SCH (08:33)
[2024-09-08] MEDS: metFORMIN 500 MG TAB PO SCH (08:33)
[2024-09-08] MEDS: Insulin Regular, Human 100 UNIT/ML 10 ML VIAL SC PRN (08:41)
[2024-09-08] MEDS: BIOTIN 5000 MCG PO SCH (09:20)
[2024-09-08 12:04] VITALS: BMI 24.5
[2024-09-08] MEDS: Benzonatate 100 MG CAP PO SCH (22:05)
[2024-09-09] MEDS: traMADol HCl 50 MG TAB PO PRN (16:15)
[2024-09-09] MEDS: Benzonatate 100 MG CAP PO PRN (22:14)
[2024-09-11] MEDS: COMBIGAN L EYE SCH (21:17)
[2024-09-12] MEDS: PROLENSA 0.07% L EYE SCH (09:16)
[2024-09-18 06:03] LABS: Anion Gap 14 mmol/L (10-20); BUN (Urea Nitrogen) 21 mg/dL (9.8-20.1); Calc. Creatinine Clearance 60 mL/min (70-130); Calcium 9.4 mg/dL (7.8-10.44); Carbon Dioxide 23 mmol/L (23-31); Chloride 95 mmol/L (98-107); Estimated GFR 84; Glucose 129 mg/dL (83-110); Potassium 4.4 mmol/L (3.5-5.1); Sodium 128 mmol/L (136-145)
[2024-09-21 05:37] LABS: Sodium 129 mmol/L (136-145)
[2024-09-22] MEDS: Ondansetron ODT 4 MG TAB PO PRN (10:53)
[2024-09-22] MEDS: REFRESH RELIEVA EA EYE PRN (21:51)
[2024-09-25 05:18] LABS: Anion Gap 14 mmol/L (10-20); BUN (Urea Nitrogen) 17 mg/dL (9.8-20.1); Calc. Creatinine Clearance 60 mL/min (70-130); Carbon Dioxide 25 mmol/L (23-31); Chloride 95 mmol/L (98-107); Estimated GFR 84; Glucose 115 mg/dL (83-110); Potassium 3.9 mmol/L (3.5-5.1); Sodium 130 mmol/L (136-145)
[2024-09-26 05:09] LABS: Hematocrit 40.3 % (36.0-47.0); Hemoglobin 13.8 g/dL (12.0-16.0); Platelet Count 264 10x3/uL (130-400)
[2024-09-26] MEDS: Oxymetazoline HCl 0.05% (30 ML BOT) ONE (18:45)
[2024-09-30 05:13] LABS: Anion Gap 15 mmol/L (10-20); BUN (Urea Nitrogen) 24 mg/dL (9.8-20.1); Calc. Creatinine Clearance 56 mL/min (70-130); Calcium 9.5 mg/dL (7.8-10.44); Carbon Dioxide 25 mmol/L (23-31); Chloride 91 mmol/L (98-107); Estimated GFR 78; Glucose 144 mg/dL (83-110); Potassium 3.9 mmol/L (3.5-5.1); Sodium 127 mmol/L (136-145)
[2024-10-01] MEDS: Venlafaxine XR 37.5 MG CAP PO SCH (08:05)
[2024-10-05] MEDS ORDERED: cloNIDine 0.2mg/24 Hour PATCH TD SCH (20:00)
[2024-10-05] MEDS ORDERED: cloNIDine 0.1 MG TAB PO PRN (20:26)
[2024-10-06] MEDS: Amlodipine 5 MG TAB PO SCH (08:33)
[2024-10-08 05:25] LABS: Hematocrit 35.8 % (36.0-47.0); Hemoglobin 12.7 g/dL (12.0-16.0); Platelet Count 277 10x3/uL (130-400)
[2024-10-08 05:56] LABS: AST (SGOT) 14 U/L (5-34); Albumin 3.3 g/dL (3.4-4.8); Anion Gap 14 mmol/L (10-20); BUN (Urea Nitrogen) 11 mg/dL (9.8-20.1); Bilirubin, Total 0.4 mg/dL (0.2-1.2); Calc. Creatinine Clearance 66 mL/min (70-130); Calcium 9.2 mg/dL (7.8-10.44); Carbon Dioxide 24 mmol/L (23-31); Chloride 93 mmol/L (98-107); Estimated GFR 88; Globulin 2.9 g/dL (2.4-3.5); Glucose 129 mg/dL (83-110); Protein, Total 6.2 g/dL (5.8-8.1); Sodium 127 mmol/L (136-145)
[2024-10-08 06:15] LABS: ALT (SGPT) 19 U/L (8-55); Alkaline Phosphatase 51 U/L (40-110)
[2024-10-09] MEDS: Amlodipine 5 MG TAB PO SCH (10:11)
[2024-10-10 00:32] LABS: Bilirubin Negative (Negative); Blood, Urine Negative (Negative); Glucose, Urine (Dipstick) Negative (Negative); Ketone, Urine Negative (Negative); Leukocyte Moderate (Negative); Nitrite Negative (Negative); Protein, Urine (Dipstick) 100 mg/dL (Neg-Trace); Specific Gravity, Urine 1.015 (1.005-1.030); Urobilinogen 0.2 mg/dL (Less than 2)
[2024-10-10 00:42] LABS: Clarity Slightly Cloudy (Clear)
[2024-10-10 01:00] LABS: Bacteria/HPF 1+ HPF (None Seen); RBC/HPF None Seen HPF (0-3)
[2024-10-10] MEDS: Nitrofurantoin Monohyd/M-Cryst 100 MG CAP PO SCH (09:41)
[2024-10-12] MEDS ORDERED: cloNIDine 0.2mg/24 Hour PATCH TD SCH (09:00)
[2024-10-14 06:07] VITALS: TEMP 98.1
[2024-10-14] MEDS: Ciprofloxacin 500 MG TAB PO SCH (09:17)
[2024-10-14 09:29] VITALS: BP 160/83
== END 2024-10-14 12:55 | DRG 560 ==
LOC: BURMED 09-07 16:40
PROVIDERS: ADMIT Family Medicine; ATTEND Family Medicine
DX: S82.55XD Nondisplaced fracture of medial malleolus of left tibia, subsequent encounter for closed fracture with routine healing (principal); E87.1 Hypo-osmolality and hyponatremia; W18.30XD Fall on same level, unspecified, subsequent encounter; R53.81 Other malaise; I48.91 Unspecified atrial fibrillation; E11.9 Type 2 diabetes mellitus without complications; E78.5 Hyperlipidemia, unspecified; I10 Essential (primary) hypertension; Z79.01 Long term (current) use of anticoagulants; Z88.1 Allergy status to other antibiotic agents; Z88.8 Allergy status to other drugs, medicaments and biological substances; Z79.899 Other long term (current) drug therapy; Z90.710 Acquired absence of both cervix and uterus; Z98.890 Other specified postprocedural states; Z79.4 Long term (current) use of insulin; Z79.84 Long term (current) use of oral hypoglycemic drugs
CPT/HCPCS: 36415; 36416; 80048; 80053; 81003; 81015; 84295; 85014; 85018; 85025; 85049; 87077; 87086; 87186; J1815; Q0162